=== PATIENT | male | born 1995 | race Caucasian/White ===

== ENCOUNTER 2019-05-06 22:58 | Emergency (ER) | payer OTHER ==
[~2019-05-06] VITALS: Ht 167.6 cm; Wt 90.0 kg
[2019-05-06 23:41] LABS: COLLECTION METHOD CLEAN CATCH
[2019-05-06 23:56] LABS: PH 6 (5-8); SQUAMOUS EPITHELIAL None Seen /hpf; URINE APPEARANCE Clear; URINE BACTERIA None Seen /hpf; URINE BILIRUBIN Negative (NEGATIVE); URINE BLOOD Negative (NEGATIVE); URINE COLOR Straw; URINE GLUCOSE Negative (NEGATIVE); URINE KETONE Negative (NEGATIVE); URINE LEUKOCYTE ESTERASE Negative (NEGATIVE); URINE NITRATE Negative (NEGATIVE); URINE PROTEIN(semi-quant) Negative (NEGATIVE); URINE RBC 0-2 /hpf; URINE UROBILINOGEN Negative (NEGATIVE)
[2019-05-07 00:47] VITALS: BP 118/78; PULSE 70; TEMP 98.1
== END 2019-05-07 00:58 | disposition home or self-care (01) ==
LOC: COL.ER 22:58
PROVIDERS: Emergency Medicine
DX: N50.811 Right testicular pain (principal)